=== PATIENT | female | born 2005 | race Caucasian/White ===

== ENCOUNTER 2025-06-14 19:28 | Outpatient (REF) | payer OTHER, SELFPAY ==
--- NOTE | ~2025-06-14 | MR_ITS ---
EXAMINATION: MRI of the left hip was performed without contrast TECHNIQUE: Multiplanar multisequence MR imaging through a lower extremity joints was performed without intra-articular contrast INDICATION: Left hip pain when exercising, ongoing for 2 years Prior: None FINDINGS: Labrum: There is no definite labral tear. See articular cartilage section. Articular Cartilage/Joint fluid: There is no joint effusion. On sagittal T2 fat-sat image 14/21, there is linear high signal between the base of anterior labrum and anterior femoral head. Ligament/Muscle/Tendon: There is mild peritendinous fluid signal along the distal left gluteus medias tendon. Other tendons are intact and unremarkable. Ligamentum teres is intact. There is no muscle edema or fatty streaking. Neurovascular: Major neurovascular structures are unremarkable and symmetrical. Deep and superficial soft tissues: There is no intrapelvic mass or ascites. Visualized bowel is grossly unremarkable. Subcutaneous soft tissues are within normal limits. There is no adenopathy. Bones/Marrow: Bone marrow signal is physiologic. SI joints are symmetrical without erosions, or ankylosis. Pubic symphysis joint is unremarkable. MR/MR hip LT wo con IMPRESSION: On sagittal T2 fat-sat image 14/, there is linear high signal at the anterior labral and acetabular junction and anterior femoral head articular cartilage. The etiology of this signal abnormality is uncertain. This could represent a fissure in articular cartilage, or could represent minimal separation of the anterior labrum from adjacent acetabulum. If clinically indicated, consider MRI left hip arthrogram for clarification. Mild tendinopathy involving distal left gluteus medias tendon. Electronically signed by: Naman Irving MD 06/15/2025 10:55 AM EST
== END 2025-06-14 19:29 | disposition home or self-care (01) ==
LOC: HO.MRI 19:28
PROVIDERS: PCP Student in an Organized Health Care Education/Training Program; Visit Provider Student in an Organized Health Care Education/Training Program
DX: M25.552 Pain in left hip (principal)
CPT/HCPCS: 73721

== ENCOUNTER → 2025-06-14 19:32 | Outpatient (BNV) | payer OTHER, SELFPAY | PROVIDERS: PCP Student in an Organized Health Care Education/Training Program; Visit Provider Radiology Diagnostic Radiology | DX: M25.552 Pain in left hip (principal); M76.02 Gluteal tendinitis, left hip | CPT/HCPCS: 73721 ==